=== PATIENT | female | born 1995 | race Caucasian/White ===

== ENCOUNTER 2018-10-27 17:16 | Emergency (ER) | payer OTHER ==
[~2018-10-27] VITALS: Ht 172.7 cm; Wt 90.9 kg
[2018-10-27] MEDS ORDERED: ALBUTEROL SULFATE 2.5 MG/0.5 ML NEB SOLUTION NEB ONE (19:15)
[2018-10-27] MEDS ORDERED: IPRATROPIUM BROMIDE 0.5 MG/2.5 ML NEB SOLUTION NEB ONE (19:15)
[2018-10-27] MEDS ORDERED: DEXAMETHASONE SOD PHOS 4 MG/ML VIAL IM ONE (19:15)
[2018-10-27 21:16] VITALS: BP 120/78
== END 2018-10-27 21:16 | disposition home or self-care (01) ==
LOC: EMS 17:19
DX: J20.9 Acute bronchitis, unspecified (principal); J45.909 Unspecified asthma, uncomplicated
CPT/HCPCS: 71046; 81025; 94640; 96372; 99283; J1100